=== PATIENT | female | born 1990 | race Two or more races ===

== ENCOUNTER → 2019-12-04 | Outpatient (CLI) | payer OTHER | END | disposition home or self-care (01) | LOC: PPH VACUNA 09:00 | DX: Z23 Encounter for immunization (principal) ==

== ENCOUNTER 2020-03-26 15:54 | Outpatient (CLI) | payer OTHER | END 2020-03-26 15:59 | disposition HB | LOC: RAD 15:54 | DX: R09.02 Hypoxemia (principal) ==

== ENCOUNTER 2020-04-12 11:02 | Outpatient (CLI) | payer OTHER | END 2020-04-12 11:03 | disposition home or self-care (01) | LOC: LAB 11:02 | PROVIDERS: ATTEND Surgery | DX: G47.33 Obstructive sleep apnea (adult) (pediatric) (principal) ==

== ENCOUNTER 2020-08-21 09:30 | Outpatient (CLI) | payer OTHER | END 2020-08-21 09:47 | disposition home or self-care (01) | LOC: LAB 09:30 | DX: D46.4 Refractory anemia, unspecified (principal); E11.9 Type 2 diabetes mellitus without complications; E03.9 Hypothyroidism, unspecified; E54 Ascorbic acid deficiency; E55.9 Vitamin D deficiency, unspecified; D51.9 Vitamin B12 deficiency anemia, unspecified; B96.81 Helicobacter pylori [H. pylori] as the cause of diseases classified elsewhere ==

== ENCOUNTER 2020-12-07 11:14 | Outpatient (CLI) | payer OTHER | END 2020-12-07 12:14 | disposition home or self-care (01) | LOC: PPH VACUNA 11:14 | PROVIDERS: ATTEND Emergency Medicine Pediatric Emergency Medicine | DX: Z23 Encounter for immunization (principal) ==

== ENCOUNTER 2021-03-14 11:19 | Emergency (ER) | payer OTHER ==
[~2021-03-14] VITALS: Ht 165.1 cm; Wt 77.1 kg
== END 2021-03-14 14:28 | disposition home or self-care (01) ==
LOC: ER 11:19
DX: U07.1 COVID-19 (principal); Z20.822 Contact with and (suspected) exposure to COVID-19

== ENCOUNTER 2021-12-16 16:10 | Outpatient (CLI) | payer OTHER | END 2021-12-16 16:11 | disposition home or self-care (01) | LOC: PPH VACUNA 16:10 | PROVIDERS: ATTEND Emergency Medicine Pediatric Emergency Medicine | DX: Z23 Encounter for immunization (principal) ==

== ENCOUNTER 2023-04-03 10:45 | Outpatient (CLI) | payer OTHER | END 2023-04-03 10:47 | disposition home or self-care (01) | LOC: PRENATAL 10:45 | PROVIDERS: ATTEND Obstetrics & Gynecology Maternal & Fetal Medicine | DX: O36.80X0 Pregnancy with inconclusive fetal viability, not applicable or unspecified (principal); Z36.82 Encounter for antenatal screening for nuchal translucency; Z3A.13 13 weeks gestation of pregnancy ==

== ENCOUNTER 2023-05-23 13:19 | Outpatient (CLI) | payer OTHER | END 2023-05-23 13:20 | disposition home or self-care (01) | LOC: PRENATAL 13:19 | PROVIDERS: ATTEND Obstetrics & Gynecology Maternal & Fetal Medicine | DX: O35.3XX0 Maternal care for (suspected) damage to fetus from viral disease in mother, not applicable or unspecified (principal); O44.00 Complete placenta previa NOS or without hemorrhage, unspecified trimester; O34.219 Maternal care for unspecified type scar from previous cesarean delivery; Z3A.20 20 weeks gestation of pregnancy ==

== ENCOUNTER 2023-09-25 17:16 | Inpatient (IN) | payer OTHER ==
[~2023-09-25] VITALS: Ht 165.1 cm; Wt 3.2 kg
[2023-09-25 17:56] LABS: HEMATOCRIT 36.6 % (36.0-45.00); HEMOGLOBIN 12.3 g/dL (12.0-15.00); MEAN CELL VOLUME 90.3 fL (80.00-100.00); MEAN CORPUSCULAR HEMOGLOBIN 30.2 pg (27.00-32.0); MEAN CORPUSCULAR HGB CONC 33.5 g/dl (32.0-36.0); PLATELET COUNT 210 K/uL (150-450); RED BLOOD COUNT 4.06 M/uL (4.00-6.00); RED CELL DISTRIBUTION WIDTH 13.6 % (11.5-14.5)
[2023-09-25 18:12] LABS: BILIRUBIN TOTAL 0.42 mg/dL (0.3-1.2); CALCIUM 8.7 mg/dL (8.5-10.1); CREATININE SERUM 0.52 mg/dL (0.55-1.02); GFR 137.54; GLOBULINA 3.3 G/DL (2.4-3.5); POTASSIUM 4.01 mEq/L (3.5-5.1); TOTAL PROTEIN 6.3 gm/dL (6.4-8.2)
[2023-09-25 18:13] LABS: INR 0.95; PARTIAL THROMBOPLASTIN TIME 24.5 SECONDS (22.0-34.0)
[2023-09-25] MEDS ORDERED: RINGERS SOLUTION,LACTATED 1,000 ML IV SCH (18:30)
[2023-09-25] MEDS ORDERED: PRENATAL CAPLE1 EAC1 (18:44)
[2023-09-25] MEDS ORDERED: OXYTOCIN 10 UNITS/ML VIAL ONE (19:22)
[2023-09-25] MEDS ORDERED: ERYTHROMYCIN BASE 1 GM TUBE OP ONE ×2 (19:22→19:45)
[2023-09-25] MEDS ORDERED: OXYTOCIN 10 UNITS/ML VIAL IV ONE (19:45)
[2023-09-25] MEDS ORDERED: MEPERIDINE HCL/PF 50 MG/ML VIAL IM PRN (20:45)
[2023-09-25] MEDS ORDERED: PROMETHAZINE HCL 50 MG/ML AMPUL IM PRN (20:45)
[2023-09-26 06:57] LABS: HEMOGLOBIN 11.6 g/dL (12.0-15.00); MEAN CELL VOLUME 90.6 fL (80.00-100.00); MEAN CORPUSCULAR HGB CONC 34.2 g/dl (32.0-36.0); PLATELET COUNT 192 K/uL (150-450); RED BLOOD COUNT 3.75 M/uL (4.00-6.00); RED CELL DISTRIBUTION WIDTH 13.5 % (11.5-14.5)
[2023-09-26] MEDS ORDERED: OxyCODONE HCL/APAP UD (PERCOCET) PO PRN (08:00)
[2023-09-26] MEDS ORDERED: PNV,CALCIUM 72/IRON/FOLIC ACID 1 TAB TABLET PO SCH (08:00)
[2023-09-26] MEDS ORDERED: SIMETHICONE 125 MG CAPSULE PO SCH (09:00)
[2023-09-26] MEDS ORDERED: DOCUSATE SODIUM 100MG CAP PO SCH (09:00)
== END 2023-09-28 15:04 | disposition home or self-care (01) | DRG 788 ==
LOC: OB/GYN 17:16 → LDR 17:16 → O/R 19:56 → OB/GYN 20:43
PROVIDERS: ADMIT Obstetrics & Gynecology; ATTEND Obstetrics & Gynecology
PROC: 4A1HXCZ Monitoring of Products of Conception, Cardiac Rate, External Approach (ICD-10-PCS; 2023-09-25)
PROC: 10D00Z1 Extraction of Products of Conception, Low, Open Approach (ICD-10-PCS; principal; 2023-09-25 21:15)
DX: O34.211 Maternal care for low transverse scar from previous cesarean delivery (principal); Z3A.38 38 weeks gestation of pregnancy; Z37.0 Single live birth; Z20.822 Contact with and (suspected) exposure to COVID-19